=== PATIENT | female | born 1995 | race Caucasian/White ===

== ENCOUNTER 2020-11-12 11:52 | Emergency (ER) | payer MEDICAID ==
[~2020-11-12] VITALS: Ht 160 cm; Wt 59.8 kg
[2020-11-12 12:15] VITALS: BP 114/81
[2020-11-12] MEDS ORDERED: DIPH25CA83 PO (13:20)
[2020-11-12] MEDS ORDERED: diphenhydrAMINE 25mg capsule PO ONE (13:20)
[2020-11-12] MEDS ORDERED: HYDR28CR14 TOP (13:20)
== END 2020-11-12 13:28 | disposition home or self-care (01) ==
LOC: ER 11:53
DX: T78.49XA Other allergy, initial encounter (principal); F12.90 Cannabis use, unspecified, uncomplicated; Z88.1 Allergy status to other antibiotic agents; Z79.899 Other long term (current) drug therapy; X58.XXXA Exposure to other specified factors, initial encounter
CPT/HCPCS: 99283; Q0163